=== PATIENT | female | born 1965 | race Caucasian/White ===

== ENCOUNTER 2018-10-14 14:31 | Outpatient (REF) | payer OTHER, SELFPAY ==
[2018-10-14 20:15] LABS: HCT 38.7 % (36.0-46.0); HGB 12.9 g/dL (12.0-15.5); Mean Corp. HGB Concentration 33.3 g/dL (32.0-36.0); Mean Corpuscular Hemoglobin 28.9 pg (27.0-33.0); Mean Corpuscular Volume 86.8 fL (80-95); Mean Platelet Volume 9.9 fL (8.0-11.0); Platelet Count 298 x1000/uL (130-400); RBC 4.46 m/cumm (4.00-5.20); RBC Distribution Width 13.9 % (11.7-14.6); White Blood Cell Count 9.59 k/cumm (4.4-10.8)
[2018-10-14 20:51] LABS: ALT 27 U/L (12-78); AST 20 U/L (15-37); Albumin 3.6 g/dL (3.4-5.0); Alkaline Phosphatase 107 U/L (46-116); Anion Gap 9.5 mmol/L (3-11); BUN 17 mg/dL (7-18); Bilirubin, Total 0.3 mg/dL (0.2-1.0); CO2 26.5 mmol/L (21.0-32.0); CREATININE 0.95 mg/dL (0.55-1.02); Calcium 9.2 mg/dL (8.5-10.1); Chloride 102 mmol/L (98-107); Cholesterol 222 mg/dL (50-200); Glucose 116 mg/dL (70-100); HDL Cholesterol 63 mg/dL (40-60); LDL CHOLESTEROL 128 mg/dL (<100); Potassium 4.2 mmol/L (3.5-5.1); Sodium 138 mmol/L (136-145); Total Protein 7.4 g/dL (6.4-8.2); Triglyceride 126 mg/dL (30-150)
== END 2018-10-14 14:51 ==
LOC: NCHCN 14:31
PROVIDERS: PCP Family Medicine; Visit Provider Family Medicine
DX: Z00.00 Encounter for general adult medical examination without abnormal findings (principal); E78.5 Hyperlipidemia, unspecified
CPT/HCPCS: 80053; 80061; 83721; 85027

== ENCOUNTER 2019-06-02 16:08 | Outpatient (REF) | payer OTHER, SELFPAY | END 2019-06-02 16:28 | LOC: NCHCN 16:08 | PROVIDERS: PCP Family Medicine; Visit Provider Family Medicine | DX: R39.15 Urgency of urination (principal) | CPT/HCPCS: 87086 ==

== ENCOUNTER 2020-02-29 01:25 | Outpatient (CLI) | payer OTHER, SELFPAY ==
--- NOTE | 2020-02-29 | DI.MAMMO_ITS ---
EXAM: MG MAMMO SCREENING CLINICAL HISTORY: SCREENING, Z12.31 TECHNIQUE: Bilateral full field digital CC and MLO mammographic images were obtained with 3D tomosyn thesis and utilizing computer aided detection (CAD). COMPARISON: Available for comparison. FINDINGS: Masses/Architectural Distortion: None seen. Microcalcifications: No suspicious pleomorphic-type are seen. Scattered stable punctate benign-appear ing calcifications are seen throughout the breasts. Skin Thickening/Nipple Retraction: None. IMPRESSION: 1. No significant interval change with no specific features of malignancy noted. 2. Unless there is more urgent need, screening mammography is recommended, as per [employer] guidelines. BI-RADS Category 2 - Benign Findings Breast Density - Category C - Heterogeneously dense The mammogram demonstrates the patient's breast tissue is dense. Dense breast tissue is very common a nd is not abnormal but dense breast tissue can make it harder to find cancer on a mammogram. Also, de nse breast tissue may increase their breast cancer risk. This information about the result of the [facility] mogram report was provided to the patient to raise their awareness. Use this report when you speak wi th the patient about their risks for breast cancer, which includes their family history. At that time , you may recommend for more screening tests (Ultrasound or MRI) as they might be useful based on the ir risk. A negative radiographic report should not delay biopsy if a dominant or clinically suspicious mass is present. Up to ten percent of cancers are not identified on mammography. A negative report may reinforce clinical impression. Adenosis and dense breasts may obscure an underlying neoplasm. False positive reports average 6 to 10%. Patient will receive a letter notifying them of these results.
--- NOTE | 2020-02-29 16:00 | DI.DEXA_ITS ---
EXAM: XR DEXA BONE DENSITY W/WO TANMAY CLINICAL HISTORY: MENOPAUSE SCREENING, Z78.0 TECHNIQUE: [employer] C densitometer. COMPARISON: No exams were available for comparison FINDINGS: The lateral view of the thoracic and lumbar spine shows no evidence of compression fractures. The b one mineral density measurements of the lumbar spine correspond to a total T-score of 1.5, in the nor mal range. Bone mineral density measurements of the left hip correspond to a total T-score of 1.5 an d a femoral neck T-score of 0.3, in the normal range. Bone mineral density measurements of the left forearm correspond to a T-score of the distal 3rd of 0.2, in the normal range. IMPRESSION: Normal bone mineral density.
== END 2020-02-29 01:45 ==
PROVIDERS: PCP Family Medicine; Visit Provider Family Medicine
DX: Z78.0 Asymptomatic menopausal state (principal); Z12.31 Encounter for screening mammogram for malignant neoplasm of breast; R92.2 Inconclusive mammogram; R92.1 Mammographic calcification found on diagnostic imaging of breast
CPT/HCPCS: 77063; 77067; 77080

== ENCOUNTER 2020-04-26 17:25 | Outpatient (REF) | payer OTHER, SELFPAY ==
[2020-05-01 03:11] LABS: Patient Race White; SARS-CoV-2 RNA Undetected (Undetected); SARS-CoV-2 Specimen Source Nasal
== END 2020-04-26 17:45 ==
LOC: NCHCN 17:25
PROVIDERS: PCP Family Medicine; Visit Provider Nurse Practitioner Family
DX: R05 Cough (principal)
CPT/HCPCS: U0003

== ENCOUNTER 2020-09-30 16:23 | Outpatient (REF) | payer OTHER, SELFPAY ==
--- NOTE | 2020-09-30 14:00 | PAPFT_PTH ---
PATIENT: Nayeli Nguyen LOC: [facility]#:[id number] AGE/SX: 55/F ROOM: RE09/30/[address]: Kim Cooper : 1965 BED: DIS: 09/30/2020 SPEC #: [id number] RECD: 10/01/20 12:56 STATUS: YUDY REKylah #: [id number] BELLE: 09/30/20 14:[address]: Kim Cooper DEPT: [facility] Cytology RECD BY: Debbie Dos Santos Tissues: 1 - CX/ENDOCX FOR PAP SMEARS Procedures: PAP THIN PREP/UVM Screening HPV DNA PROBE Comments: [id number]
== END 2020-09-30 16:24 | disposition home or self-care (01) ==
LOC: NCHCN 16:23
PROVIDERS: PCP Family Medicine; Visit Provider Family Medicine
DX: Z00.00 Encounter for general adult medical examination without abnormal findings (principal); Z12.4 Encounter for screening for malignant neoplasm of cervix; Z01.419 Encounter for gynecological examination (general) (routine) without abnormal findings; Z11.51 Encounter for screening for human papillomavirus (HPV)
CPT/HCPCS: 88142; 87624

== ENCOUNTER 2021-07-17 16:09 | Outpatient (REF) | payer OTHER, SELFPAY ==
[2021-07-17 15:10] LABS: Hemoglobin A1C 7.2 % (<5.7)
[2021-07-17 15:24] LABS: ALT 48 U/L (14-59); AST 35 U/L (15-37); Albumin 3.8 g/dL (3.4-5.0); Alkaline Phosphatase 117 U/L (46-116); Anion Gap 7.3 mmol/L (3-11); BUN 17 mg/dL (7-18); Bilirubin, Total 0.3 mg/dL (0.2-1.0); CO2 29.7 mmol/L (21.0-32.0); Calcium 9.2 mg/dL (8.5-10.1); Calculated LDL 117 mg/dL (<100); Chloride 102 mmol/L (98-107); Cholesterol 225 mg/dL (<200); Estimated GFR 57.15 (mL/min/1.73m2); Glucose 179 mg/dL (74-106); HDL Cholesterol 58 mg/dL (40-60); Potassium 4.1 mmol/L (3.5-5.1); Sodium 139 mmol/L (136-145); Total Protein 7.5 g/dL (6.4-8.2); Triglyceride 252 mg/dL (<150)
[2021-07-17 15:36] LABS: Vitamin D 25 Total 42.7 ng/mL (30-100)
== END 2021-07-17 16:10 | disposition home or self-care (01) ==
LOC: NCHCN 16:09
PROVIDERS: PCP Family Medicine; Visit Provider Family Medicine
DX: E78.5 Hyperlipidemia, unspecified (principal); R73.03 Prediabetes
CPT/HCPCS: 80053; 80061; 82306; 83036

== ENCOUNTER 2021-09-22 01:12 | Outpatient (CLI) | payer OTHER, SELFPAY ==
--- NOTE | 2021-09-22 16:08 | DI.MAMMO_ITS ---
Exam(s) MAMMO SCREENING EXAM: MAMMO SCREENING CLINICAL HISTORY: SCREENING, Z12.31 TECHNIQUE: Mammograms were interpreted according to the usual protocol including computer analysis w [employer] CAD system, tomosynthesis and C-view imaging. COMPARISON: 2015 through 2019 FINDINGS: The breasts are composed of heterogeneously dense fibroglandular densities, Breast Density category C . Left breast: No suspicious masses or suspicious microcalcifications are seen. scattered benign calci fications. No skin thickening or abnormal axillary lymph nodes are seen. There has been no significant change from prior exams. Right breast: Scattered benign calcifications similar to contralateral breast, stable. Question of a n area of increased asymmetric density in the upper outer quadrant of the right breast which may repr esent overlying fibroglandular tissue. Spot compression views and ultrasound are requested for furth er evaluation. IMPRESSION: Left breast: BI-RADS Category 1, Negative mammogram. Yearly screening mammography is recommended. Right breast: BI-RADS Cat 0 - Assessment Incomplete: Need additional imaging evaluation Breast Density Category C, heterogeneously Dense. The mammogram demonstrates the patient's breast tissue is dense. Dense breast tissue is very common a nd is not abnormal but dense breast tissue can make it harder to find cancer on a mammogram. Also, de nse breast tissue may increase breast cancer risk. This information about the result of the mammogram report was provided to the patient to raise their awareness. Use this report when you speak with the patient about their risks for breast cancer, which includes their family history. At that time, you may recommend additional screening tests (Ultrasound or MRI) as they might be useful based on their r isk. A negative radiographic report should not delay biopsy if a dominant or clinically suspicious mass is present. Up to ten percent of cancers are not identified on mammography. A negative report may reinforce clinical impression. Adenosis and dense breasts may obscure an underlying neoplasm. False positive reports average 6 to 10%.
== END 2021-09-22 01:32 ==
PROVIDERS: PCP Family Medicine; Visit Provider Family Medicine
DX: Z12.31 Encounter for screening mammogram for malignant neoplasm of breast (principal); R92.8 Other abnormal and inconclusive findings on diagnostic imaging of breast
CPT/HCPCS: 77063; 77067

== ENCOUNTER → 2021-10-03 00:45 | Outpatient (CLI) | payer OTHER, SELFPAY ==
--- NOTE | 2021-10-03 | DI.US_ITS ---
Exam(s) MG MAMMO SCREEN CALL BACK UNI US BREAST RT COMPLETE EXAM: MG MAMMO SCREEN CALL BACK UNI -RIGHT AND COMPLETE RIGHT BREAST ULTRSOUND CLINICAL HISTORY: F/U ABNL MAMMO, ? INCREASED ASYMMETRIC DENSITY RT BREAST. TECHNIQUE: Unilateral RIGHT BREAST spot mammographic images obtained with 3D tomosynthesisand utiliz ing computer aided detection (CAD). . Complete RIGHT breast Ultrasound was also performed, including all 4 quadrants, the retroareolar deandre on, and the ipsilateral axilla. COMPARISON: Prior mammograms were reviewed. This additional imaging was performed due to findings described on the recent screening mammogram of 09/22/2021. FINDINGS: Diagnostic right breast mammogram: Additional mammographic views performed todayrender this area less concerning. Complete right breast ultrasound: Ultrasound performed today reveals no evidence of solid or significant cystic lesions in all 4 quadra nts.. No findings in immediate retroareolar region. Scanning of the right axilla reveals no significant adenopathy IMPRESSION: 1. No radiographic evidence of malignancy in the right breast. 2. Negative complete right breast ultrasound. Appropriate follow-up is repeat right breast MAMMOGRAM in 6 months.. The patient was informed of these findings and recommendations prior to leaving the department today. BI-RADS Category 3 - 6 month - Probably Benign Finding: Recommend follow-up mammography in 6 months Breast Density - Category C - Heterogeneously dense Breast density Category C or D implies that the patient has dense breast tissue. Dense breast tissue can make it harder to find cancer on a mammogram. Dense breast tissue is also associated with an incr eased risk of breast cancer. This information about the result of the mammogram report was provided to the patient to raise their awareness. Use this report when you speak with the patient about their risks for breast cancer, which includes their family history. At that time, you may recommend additional screening tests (Ultrasoun d or MRI) as these tests may add significant information. A negative radiographic report should not delay biopsy if a dominant or clinically suspicious mass is present. Up to ten percent of cancers are not identified on mammography. A negative report may reinforce clinical impression. Adenosis and dense breasts may obscure an underlying neoplasm. False positive reports average 6 to 10%. Patient will receive a letter notifying them of these results.
== END ==
PROVIDERS: PCP Family Medicine; Visit Provider Family Medicine
DX: Z12.31 Encounter for screening mammogram for malignant neoplasm of breast (principal); R92.8 Other abnormal and inconclusive findings on diagnostic imaging of breast; N64.59 Other signs and symptoms in breast
CPT/HCPCS: 76642; 77063; 77067

== ENCOUNTER 2022-02-20 05:52 | Emergency (ER) | payer OTHER, SELFPAY ==
[2022-02-20 05:57] VITALS: BP 139/77; PULSE 83; RESP 16; TEMP 36.5; O2SAT 97
--- OUTSIDE RECORDS SUMMARY | 2022-02-20 05:59 | XMS_ITS | Clinical Summary ---
:1965 Author Organization [facility] [place] [address] Care Team Providers Name Role Phone Kim Cooper MD Primary Care Provider Allergies No known active allergies Medications No known medications Active Problems Problem Noted Date Nevus 06/02/2017 Lentigo 06/02/2017 Social History Tobacco Use Types Packs/Day Years Used Date Never Smoker Smokeless Tobacco: Never Used Sex Assigned at Date Recorded Not on file Last Filed Vital Signs Vital Sign Reading Time Taken Comments Blood Pressure 108/60 05/27/2012 2:30 PM Sourced from [employer] EST Conversion Pulse - - Temperature - - Respiratory Rate - - Oxygen Saturation - - Inhaled Oxygen - - Concentration Weight 79.8 kg (176 lb) 05/27/2012 2:30 PM Sourced from [employer] EST Conversion Height 162.6 cm (5' 4) 05/27/2012 2:30 PM Sourced from [employer] EST Conversion Body Mass Index 30.21 05/27/2012 2:30 PM EST Plan of Treatment Health Maintenance Due Date Last Done Comments Covid-19 Vaccine (#1) 01/22/1969 HIV screen 01/22/1982 Hepatitis C Screening 01/22/1982 Tdap adult 01/22/1983 Tetanus vaccine 01/22/1983 HPV test 01/22/1994 PAP Smear 01/22/1994 Breast Cancer Share Decision Needed 2004 Colonoscopy 01/22/2009 Breast Cancer screening 01/22/2014 Zoster vaccine (1 of 2) 01/22/2014 Advance Directive 01/22/2019 Influenza (Flu) vaccine (1 of 1 - Influenza standard 02/26/2022 series) Insurance Payer Benefit Plan Subscriber ID Effective Dates Phone Address Type / Group FOR FOR [id number] 2018-Miguel [phone] [address] [employer] [address] [address] Care Teams Fibreglass Laminator Relationship Specialty Start Date End Date Kim Cooper MD PCP - General Family Medicine 06/01/17 [address] [place], [place] [id number]
--- OUTSIDE RECORDS SUMMARY | 2022-02-20 05:59 | XMS_ITS | Encounter Summary ---
:1965 Author Organization [facility] [place] [address] Care Team Providers Name Role Phone Patti Faustin DO Primary Care Provider Encounter Details Date Type Department Care Team Description 02/09/2012 Office Visit Nolan Hancock MD [address] [place] [phone] [place] [address] [phone] (Wo rk) Social History Tobacco Use Types Packs/Day Years Used Date Never Assessed Sex Assigned at Date Recorded Not on file documented as of this encounter Plan of Treatment Not on filedocumented as of this encounter Visit Diagnoses Not on filedocumented in this encounter Care Teams Clerical Support Relationship Specialty Start Date End Date Patti Faustin DO PCP - General 12/24/11 05/31/[address] [place] [id number] documented as of this encounter
--- OUTSIDE RECORDS SUMMARY | 2022-02-20 05:59 | XMS_ITS | Encounter Summary ---
:1965 Author Organization [facility] [place] [address] Care Team Providers Name Role Phone Patti Faustin DO Primary Care Provider Encounter Details Date Type Department Care Team Description 02/09/2012 Abstract [facility] Provider, His Cal akiser MD [facility] Health Information Services [address] [place] [phone] Social History Tobacco Use Types Packs/Day Years Used Date Never Assessed Sex Assigned at Date Recorded Not on file documented as of this encounter Last Filed Vital Signs Vital Sign Reading Time Taken Comments Blood Pressure - - Pulse - - Temperature - - Respiratory Rate - - Oxygen Saturation - - Inhaled Oxygen - - Concentration Weight 78.9 kg (174 lb) 02/09/2012 2:00 PM Sourced from [employer] EDT Conversion Height 160 cm (5' 3) 02/09/2012 2:00 PM Sourced from [employer] EDT Conversion Body Mass Index 30.82 02/09/2012 2:00 PM EDT documented in this encounter Plan of Treatment Not on filedocumented as of this encounter Visit Diagnoses Not on filedocumented in this encounter Care Teams Neuropsychologist Relationship Specialty Start Date End Date Patti Faustin DO PCP - General 12/24/11 05/31/17 [address] [place] [address] documented as of this encounter
--- OUTSIDE RECORDS SUMMARY | 2022-02-20 05:59 | XMS_ITS | Encounter Summary ---
:1965 Author Organization [facility] [place] [address] Care Team Providers Name Role Phone Kim Cooper MD Primary Care Provider Reason for Visit Reason Comments Skin Check Consultation (Routine) - Specialty Diagnoses / Procedures Referred By Contact Refer red To Contact Dermatology Procedures Kim Cooper MD Hammer, Charles J, MD Skin Check [address] [place] [address] [place] [address] Phone: Fax: Referral ID Status Reason Start Date Expiration Date Visits V isits Requested Authorized [id number] Consult, Test 06/01/2017 06/01/2018 6 6 & Treat PCP Updated and/or Approved Encounter Details Date Type Department Care Team Description 06/01/2017 [facility] Al[facility] Gil MD Nevus; [address] [facility] Khari [address] [facility] [place] [address] DERMATOLOGY [phone] [place], [place] [address] (Wo rk) Social History Tobacco Use Types Packs/Day Years Used Date Never Smoker Smokeless Tobacco: Never Used Sex Assigned at Date Recorded Not on file documented as of this encounter Progress Notes Alvaro Gil MD - 06/01/2017 2:00 PM EST PROBLEM: 1. Skin check. 2. Family history of malignant melanoma in sister who currently is battling metastatic disease. Nayeli is a 52-year-old woman who would like to have a general skin checkup. She is concerned, given the family history of melanoma in her sister and skin cancer in her father, both of whom she states were out in the sun more than she was. She grew up in [place]. She tended to avoid the sun and has followed sun avoidance precautions. Physical examination reveals a fair-skinned, blue-eyed woman with fair hair. She has a benign examination of the face, the neck, the chest, the back, hands, arms, and forearms. She does have more marked pigmentation and freckling of the dorsal forearms and hands compared to the ventral aspects of the upper extremities. 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 This is unchanged since her earliest childhood. Otherwise, careful examination today is benign. A/P: Benign skin examination. a. Reinforced following sun avoidance precautions. b. Recommend that the patient consider doing regular skin checkups herself. Described the increased risk of melanoma skin cancer in first degree family members of those affected by melanoma. c. Discussed recognition of melanoma, ABCDs of melanoma. Recommended I see her again p.r.n. for new lesions/concerns. cc: Kim Cooper MD documented in this encounter Plan of Treatment Not on filedocumented as of this encounter Visit Diagnoses Diagnosis Nevus Benign neoplasm of skin, site unspecifie d Lentigo Other dyschromia documented in this encounter Care Teams Geriatric Social Work Professor Relationship Specialty Start Date End Date Kim Cooper MD PCP - General Family Medicine 06/01/17 [address] [place] [address] documented as of this encounter
--- OUTSIDE RECORDS SUMMARY | 2022-02-20 05:59 | XMS_ITS | Encounter Summary ---
:1965 Author Organization [place] [place] [address] Care Team Providers Name Role Phone Patti Faustin DO Primary Care Provider Encounter Details Date Type Department Care Team Description 12/24/2011 Office Visit Duke Lawton MD [address] [place] [address] [place] [phone] [place] [address] [phone] (Wo rk) Social History Tobacco Use Types Packs/Day Years Used Date Never Assessed Sex Assigned at Date Recorded Not on file documented as of this encounter Plan of Treatment Not on filedocumented as of this encounter Visit Diagnoses Not on filedocumented in this encounter Care Teams Sampler Ovens Relationship Specialty Start Date End Date Patti Faustin DO PCP - General 12/24/11 05/31/[address] [place] [id number] documented as of this encounter
--- OUTSIDE RECORDS SUMMARY | 2022-02-20 05:59 | XMS_ITS | Encounter Summary ---
:1965 Author Organization [facility] [place] [address] Care Team Providers Name Role Phone Patti Faustin DO Primary Care Provider Encounter Details Date Type Department Care Team Description 05/27/2012 Office Visit Duke Lawton MD [address] [place] [address] [place] [phone] [place] [address] [phone] (Wo rk) Social History Tobacco Use Types Packs/Day Years Used Date Never Assessed Sex Assigned at Date Recorded Not on file documented as of this encounter Plan of Treatment Not on filedocumented as of this encounter Visit Diagnoses Not on filedocumented in this encounter Care Teams Solar System Installer Relationship Specialty Start Date End Date Patti Faustin DO PCP - General 12/24/11 05/31/[address] [place] [id number] documented as of this encounter
--- OUTSIDE RECORDS SUMMARY | 2022-02-20 05:59 | XMS_ITS | Encounter Summary ---
:1965 Author Organization [facility] [place] [address] Care Team Providers Name Role Phone Patti Faustin DO Primary Care Provider Encounter Details Date Type Department Care Team Description 02/26/2012 Office Visit Duke Lawton MD [address] [place] [address] [place] [phone] [place] [address] [phone] (Wo rk) Social History Tobacco Use Types Packs/Day Years Used Date Never Assessed Sex Assigned at Date Recorded Not on file documented as of this encounter Plan of Treatment Not on filedocumented as of this encounter Visit Diagnoses Not on filedocumented in this encounter Care Teams Director Retirement Relationship Specialty Start Date End Date Patti Faustin DO PCP - General 12/24/11 05/31/[address] [place] [address] documented as of this encounter
--- OUTSIDE RECORDS SUMMARY | 2022-02-20 05:59 | XMS_ITS | Encounter Summary ---
:1965 Author Organization [facility] [place] [address] Care Team Providers Name Role Phone Patti Faustin DO Primary Care Provider Encounter Details Date Type Department Care Team Description 01/04/2012 Office Visit Duke Lawton MD [address] [place] [address] [place] [phone] [place] [address] [phone] (Wo rk) Social History Tobacco Use Types Packs/Day Years Used Date Never Assessed Sex Assigned at Date Recorded Not on file documented as of this encounter Plan of Treatment Not on filedocumented as of this encounter Visit Diagnoses Not on filedocumented in this encounter Care Teams Floor Worker Relationship Specialty Start Date End Date Patti Faustin DO PCP - General 12/24/11 05/31/[address] [place] [address] documented as of this encounter
--- NOTE | 2022-02-20 06:03 | ED.GENADUL_ITS ---
Discharge Plan Disposition Patient Disposition: STILL A PATIENT Condition: Stable Discharge Details Clinical Impression: Abdominal pain Primary Care Provider: Kim Cooper ED Provider: Samir Lutz Home Meds and New Rx's Prescriptions: No Action sertraline 100 mg tablet 150 mg PO DAILY Label Comments: TAKE ONE AND ONE-HALF TABLETS DAILY omeprazole 20 mg capsule,delayed release(DR/EC) 20 mg PO DAILY Label Comments: TAKE 1 CAPSULE IN THE MORNING Medical Decision Making 57 yo female with hx of gerd and states had diverticulitis 15 years ago or so comes in with llq abdominal pain for a few days but worsened over the last 24 hours. She states it is only in the llq and is sharp. Denies fevers, vomit, though has had nausea, no chest pain. She has no upper abdominal pain. She has no tenderness on exam other than in the llq and appears in pain. She has no rebound or guarding. Suspect diverticulitis based on location of her pain, will obtain cbc, cmp, lipase and ct abdomen pelvis to further evaluate. pt signed out to oncoming provider pending ct results and dispo Differential Diagnosis Differential Diagnosis: diverticulitis, ovarian cyst HPI General Mode of arrival: ambulatory . Date/Time Provider Initiated Documentation: 02/20/22 05:52 . Limitations to Documentation: no limitations . Information obtained by: patient . History of Present Illness 57 year old F presents to the emergency department with the chief complaint of abdominal pain, described as moderate, Quality is described as stabbing, and is localized to the abdomen. Patient reports no radiation. Patient started experiencing this day(s) (1) and it has been constant. No relieving factors improve symptom(s), No exacerbating factors reported . Patient notes no other symptoms.. Patient did receive the following treatments prior to arrival, none Related Data Home Medications Medication Instructions Recorded Confirmed omeprazole 20 mg capsule,delayed 20 mg PO DAILY 02/20/22 02/20/22 release sertraline 100 mg tablet 150 mg PO DAILY 02/20/22 02/20/22 Allergies Allergy/AdvReac Type Severity Reaction Status Date / Time No Known Allergies Allergy Verified 02/20/22 06:00 General Stated Complaint: Abd Prob FRANKY: 3 Review of Systems All systems reviewed & are unremarkable except as noted in HPI and below Constitutional Constitutional: Denies chills, Denies fever(s) and Denies weakness Cardiovascular Cardiovascular: Denies chest pain and Denies dyspnea Respiratory Respiratory: Denies cough and Denies dyspnea Gastrointestinal Gastrointestinal: Denies vomiting Musculoskeletal Musculoskeletal: Denies joint swelling Neurologic Neurologic: Denies weakness PFSH All Active Problems (Updated 02/20/22 @ 06:13 by Samir Lutz MD) Abdominal pain (Acute) Social History Smoking/Tobacco Use Status: Former Tobacco Use Smoking risk assessment performed?: Yes Substance use type: does not use Exam Const General: no acute distress Orientation: alert HENMT Head: normal to inspection Ears: external ears normal General nose exam: external nose normal Mouth: moist mucous membranes Eyes General: appearance normal, both eyes and all related structures Neck Neck: normal visual inspection Resp Effort & Inspection: normal respiratory effort and able to speak in complete sentences Cardio Rate: regular rate GI Palpation: soft and tender Skin General skin exam: no rashes or lesions noted Neuro General: patient alert and patient oriented x3 Extrem General: normal to inspection Psych Mental Status: mental status grossly normal Course Vital Signs Vital signs: Vital Signs Temperature 36.5 C 02/20/22 05:57 Pulse 83 02/20/22 05:57 Respiratory Rate 16 02/20/22 05:57 Blood Pressure 139/77 02/20/22 05:57 Pulse Oximetry 97 02/20/22 05:57 Temperature 36.5 C 02/20/22 05:57 Temperature Source Temporal Artery Scan 02/20/22 05:57 Pulse 83 02/20/22 05:57 Respiratory Rate 16 02/20/22 05:57 Respiratory Effort 02/20/22 05:57 Blood Pressure 139/77 02/20/22 05:57 Blood Pressure Position Sitting 02/20/22 05:57 Pulse Oximetry 97 02/20/22 05:57 Oxygen Delivery Method Room Air 02/20/22 05:57 Oxygen Flow Rate 0 02/20/22 05:57 Pain Level 7 02/20/22 05:57 Sign Out Sign Out Data: Sign Out Comment: llq abdominal pain for a few days but worsened over past 24 hours, pending ct and labs, does have remote hx of diverticulitis Last updated by Samir Lutz MD at 02/20/22 06:26
[2022-02-20] MEDS: Normal Saline 1,000 ML 1000 ML IV (06:30)
[2022-02-20 06:35] LABS: Source Nasal/Nares
[2022-02-20 06:36] LABS: Abs Immature Grans 0.04 10^3/uL (0.0-0.06); Absolute Eosinophil Count 0.16 10^3/uL (0.0-0.7); Absolute Lymphocyte Count 1.87 10^3/uL (1.2-3.4); Absolute Monocyte Count 1.04 10^3/uL (0.1-0.8); Basophils % 0.3; Eosinophils % 1.4; HCT 36.3 % (36.0-46.0); HGB 11.8 g/dL (11.2-15.7); Immature Grans % 0.3; Lymphocytes % 16.3; MCH 27.6 pg (27.0-33.0); MCHC 32.5 % (32.0-36.0); MCV 85 fL (80-95); MPV 9.6 fL (8.0-11.0); Neutrophils % 72.7; Platelet Count 247 10^3/uL (130-400); RBC 4.28 10^6/uL (3.93-5.22); RDW 13.4 % (11.7-14.6); RDW-SD 41.5 fL
[2022-02-20] MEDS: Ketorolac 15 MG/ML VIAL IVP (06:38)
[2022-02-20] MEDS: Normal Saline Flush 10 ML SYR IVP (06:39)
[2022-02-20 06:46] LABS: Absolute Basophil Count 0.03 10^3/uL (0.0-0.2); Absolute Neutrophil Count 8.36 10^3/uL (1.2-6.7)
[2022-02-20 07:04] LABS: ALT 30 U/L (14-59); AST 29 U/L (15-37); Albumin 3.5 g/dL (3.4-5.0); Alkaline Phosphatase 95 U/L (46-116); Anion Gap 4.7 mmol/L (3-11); BUN 17 mg/dL (7-18); Bilirubin, Total 0.3 mg/dL (0.2-1.0); CO2 30.3 mmol/L (21.0-32.0); CREATININE 0.9 mg/dL (0.55-1.02); Calcium 8.8 mg/dL (8.5-10.1); Chloride 103 mmol/L (98-107); Glucose 145 mg/dL (74-106); Lipase 113 U/L (73-393); Potassium 4.3 mmol/L (3.5-5.1); Sodium 138 mmol/L (136-145); Total Protein 7.6 g/dL (6.4-8.2)
[2022-02-20 07:04] LABS: Bilirubin Negative (Negative); Blood Negative (Negative); Clarity Clear (Clear); Glucose Negative (Negative); Ketones Negative (Negative); Leukocyte Esterase Negative (Negative); Nitrite Negative (Negative); Specific Gravity 1.025 (1.005-1.025); Urobilinogen 0.2 EU/dL (Up TO 0.2)
[2022-02-20 07:08] LABS: COVID-19 PCR Negative (Negative)
--- NOTE | 2022-02-20 07:14 | DI.CT_ITS ---
Exam(s) CT ABDOMEN PELVIS W EXAM: CT ABDOMEN PELVIS W CLINICAL HISTORY: llq abdominal pain. TECHNIQUE: Imaging Protocol: Axial computed tomography images with coronal and sagittal reformatted images were created and reviewed CONTRAST MATERIAL: Intravenous: Omnipaque 100cc Oral: None COMPARISON: No exams were available for comparison FINDINGS: VISUALIZED LUNG BASES: No nodules nor pleural effusions evident. ABDOMEN: There is no ascites. LIVER: There are few small benign-appearing hypodensities in the liver, either cysts or small hemangi omas. GALLBLADDER/BILIARY: There is a small gallstone noted in the gallbladder lumen. No evidence of gallb ladder wall edema nor pericholecystic fluid. CBD is not dilated. PANCREAS: No evidence of pancreatic mass nor dilatation of the pancreatic duct. SPLEEN: Spleen size upper normal. Central hypodensity in the spleen is probably an hemangioma. Sple isauro and portal veins are patent. ADRENALS: There are no significant adrenal masses. KIDNEYS:No cysts evident. No solid renal masses. No calculi nor hydronephrosis.. ABDOMINAL AORTA: Abdominal aorta is not enlarged. LYMPH NODES:There is no retroperitoneal nor paraaortic adenopathy. ABDOMINAL WALL: There is an anterior abdominal wall umbilical fat containing hernia. This does not c ontain bowel loops. GI: No evidence of bowel obstruction. There diverticuli in the descending-left colon and there is evidence of acute diverticulitis at the j unction of the descending colon and upper sigmoid. The culprit diverticulum is on the posterior wall of the colon at this level. Phlegmonous changes but no distinct abscess at this time and no free fl uid. No free air at this time. PELVIS: GI: No evidence of appendicitis.Diverticulitis as described above. LYMPH NODES: There is no intrapelvic nor inguinal adenopathy. REPRODUCTIVE: Nabothian cyst measuring 9 millimeter in the cervix noted. Uterus anteverted. No abnormal adnexal masses. URINARY BLADDER: No calculi nor obvious masses evident OSSEOUS: No significant osseous lesions. Disc space narrowing chronic type at L2-3 level. Other disc spaces exhibit normal height. No fractu res. No listhesis IMPRESSION: 1. Main finding here is acute diverticulitis at the junction of the descending-left colon and upper s igmoid. No drainable abscess at this time nor evidence of free air. 2. Cholelithiasis. No evidence of acute cholecystitis nor dilatation biliary tree. 3. Benign-appearing findings in the liver and spleen as described above. No evidence of hepatic absc ess in this patient with acute diverticulitis. RADIATION DOSE DELIVERED: 988.41mGy.cm Total DLP DATA REPOSITORY: All CT scans at this facility are submitted to the National Radiology Data Registry (NRDR) Dose Index Registry (DIR) with the [employer] (ACR). RADIATION OPTIMIZATION: All CT scans at this facility use at least one of these dose optimization te chniques: automated exposure control; mA and/or kV adjustment per patient size (includes targeted exa ms where dose is matched to clinical indication); or iterative reconstruction.
[2022-02-20] MEDS: Omnipaque 350 MG/ML 100 ML BTL IJ (07:19)
--- NOTE | 2022-02-20 08:13 | DI.VRAD_ITS ---
PROCEDURE INFORMATION: Exam: CT Abdomen And Pelvis With Contrast Exam date and time: 02/20/2022 7:13 AM Age: 57 years old Clinical indication: Abdominal pain; Flank; Left lower quadrant (llq); Patient HX: Llq pain TECHNIQUE: Imaging protocol: Computed tomography of the abdomen and pelvis with contrast. Radiation optimization: All CT scans at this facility use at least one of these dose optimization techniques: automated exposure control; mA and/or kV adjustment per patient size (includes targeted exams where dose is matched to clinical indication); or iterative reconstruction. Contrast material: OMNI-PAQUE 350; Contrast volume: 100 ml; Contrast route: INTRAVENOUS (IV); COMPARISON: No relevant prior studies available. FINDINGS: Liver: There are multiple subcentimeter hepatic hypodensities, too small to accurately characterize statistically favored to represent cysts or hemangiomas. Gallbladder and bile ducts: There are gallstones in the gallbladder. Pancreas: Normal. No ductal dilation. Spleen: There is a subcentimeter low-density lesion in the spleen, likely a cyst or hemangioma. Adrenal glands: Normal. No mass. Kidneys and ureters: Normal. No hydronephrosis. Stomach and bowel: There are diverticuli in the descending colon. There is short segment wall thickening of the the descending colon with pericolonic inflammatory fat stranding. Appendix: No evidence of appendicitis. Intraperitoneal space: No free air. No significant fluid collection. Vasculature: No abdominal aortic aneurysm. Lymph nodes: Unremarkable. No enlarged lymph nodes. Urinary bladder: Unremarkable as visualized. Reproductive: Unremarkable as visualized. Bones/joints: Degenerative changes in the lumbar spine. No acute fracture. Soft tissues: Unremarkable. IMPRESSION: 1. Descending colonic diverticulitis. No discrete/drainable fluid collection or free air. Nonemergent GI consultation is recommended on resolution of acute illness, for consideration of colonoscopy. 2. Gallstones in the gallbladder. Dictated and Authenticated by: Boby Celis MD. Ordering:ADRIANA Dawson MD
--- NOTE | 2022-02-20 08:38 | W.EDPROG ---
Date of service: 02/20/22 Time of Service: 08:38 Medical Decision Making Evidence of diverticulitis without peritonitis, or systemic signs of illness. Tolerating p.o. Will start on Augmentin. Given home care instructions and return precautions. Sign Out Sign Out Data: Sign Out Comment: llq abdominal pain for a few days but worsened over past 24 hours, pending ct and labs, does have remote hx of diverticulitis Last updated by Samir Lutz MD at 02/20/22 06:26 Discharge Plan Disposition Patient Disposition: HOME Condition: Stable Discharge Details Clinical Impression: Abdominal pain, Diverticulitis Primary Care Provider: Kim Cooper ED Provider: Alfredo Ojeda Home Meds and New Rx's Prescriptions: New amoxicillin-pot clavulanate 875-125 mg tablet 1 tab PO BID 10 Days Qty: 20 0RF No Action sertraline 100 mg tablet 150 mg PO DAILY Label Comments: TAKE ONE AND ONE-HALF TABLETS DAILY omeprazole 20 mg capsule,delayed release(DR/EC) 20 mg PO DAILY Label Comments: TAKE 1 CAPSULE IN THE MORNING Discharge Instructions Instructions: Diverticulitis (ED) Additional Instructions: Please follow-up with your primary care physician. Please return to emergency department for any worsening symptoms such as severe abdominal pain fevers chills nausea vomiting or other abnormal symptoms.
[2022-02-20] MEDS: Amoxicillin 875/Clav. 125 TAB PO (08:46)
[2022-02-20 08:48] VITALS: BP 132/80; PULSE 68; RESP 17; TEMP 37; O2SAT 98
== END 2022-02-20 13:40 | disposition home or self-care (01) ==
PROVIDERS: Emergency Medicine; Emergency Provider Emergency Medicine; PCP Family Medicine
DX: K57.92 Diverticulitis of intestine, part unspecified, without perforation or abscess without bleeding (principal); Z20.822 Contact with and (suspected) exposure to COVID-19; Z87.891 Personal history of nicotine dependence
CPT/HCPCS: 36415; 80053; 83690; 87635; 96361; 96374; 99285; 74177; 81003; 85025; 99284; J1885; J3490

== ENCOUNTER → 2022-06-23 08:53 | Outpatient (BNVA) | payer OTHER, SELFPAY | PROVIDERS: PCP Family Medicine; Referring Provider Family Medicine; Visit Provider Surgery | DX: K57.92 Diverticulitis of intestine, part unspecified, without perforation or abscess without bleeding (principal); K21.9 Gastro-esophageal reflux disease without esophagitis; K51.90 Ulcerative colitis, unspecified, without complications; K44.9 Diaphragmatic hernia without obstruction or gangrene; R73.03 Prediabetes | CPT/HCPCS: 99214; 99242 ==

== ENCOUNTER 2022-07-21 09:00 | Day surgery (SDC) | payer OTHER, SELFPAY ==
--- NOTE | 2022-07-20 20:25 | W.PM.DSUDISC ---
Date of service: 07/21/22 Time of Service: 10:49 Discharge Plan Disposition Patient Disposition: Home Condition: Good Discharge Details Reason For Visit: Colonoscopy Attending Provider: Stevie Sanchez Primary Care Provider: Kim Cooper Home Meds and New Rx's Prescriptions: Continued sumatriptan succinate [Imitrex] 100 mg tablet See Rx Instructions PO .COMPLEX Rx Instructions: take 1 tab at onset of headache; if no relief, may repeat 1 tab after at least 2 hrs; max = 2 tabs/24 hrs PO Calcium 600 + D(3) 600 mg-5 mcg (200 unit) capsule PO Centrum Silver Women 8 mg iron-400 mcg-300 mcg tablet 1 tab PO DAILY Excedrin Extra Strength 250-250-65 mg tablet 1 tab PO DAILY sertraline 100 mg tablet 150 mg PO DAILY Label Comments: TAKE ONE AND ONE-HALF TABLETS DAILY omeprazole 20 mg capsule,delayed release(DR/EC) 20 mg PO DAILY Label Comments: TAKE 1 CAPSULE IN THE MORNING Discontinued bisacodyl [Dulcolax (bisacodyl)] 5 mg tablet,delayed release (DR/EC) 5 mg PO ONCE Qty: 4 0RF Rx Instructions: Take according to provider's instructions for colonoscopy prep. polyethylene glycol 3350 17 gram/dose powder 17 g PO ONCE Qty: 238 0RF Rx Instructions: To be taken as directed by prescriber's office for colonoscopy prep. Discharge Instructions Instructions: Diverticulosis (GEN), Diverticulosis Diet (GEN) Additional Instructions: 1. If tolerated, consume a soft, low fiber diet for 1-2 days. 2[address] Do not drive, drink alcohol, operate machinery, make critical decisions, or do activities that require coordination or balance for 24 hours. 3. Because air was put into your colon during the procedure, expelling air from your rectum (passing gas or farting) is normal. 4. You may not have a bowel movement for 1-3 days because of the colonoscopy prep. This is normal. 5. Go directly to the emergency room if you notice any of the following: Develop chills (warm to touch), or if you have a thermometer and your temperature is above 101 Difficulty breathing or difficultly swallowing Persistent vomiting Severe abdominal pain, other than gas cramps Severe chest pain Black, tarry stools Any bleeding ? exceeding one tablespoon 6. Call your physician if the site where your intravenous was started becomes red, swollen, painful, and warm to touch. 7. Your physician has reviewed your pre-procedure medications. Please continue to take those medications as previously ordered. You will be given specific information/education regarding any changes to your medications before leaving. Referrals: Rin Abraham DO [OSTEOPATHIC DOCTOR] - (July 27 at 11:30 AM) Activity:: Activity as Tolerated Diet:: As Tolerated Discharge Orders Discharge Orders: Discharge Order (Routine); Ordered 07/20/22 Ordered By: Stevie Sanchez DS: Diagnosis Discharge Diagnosis (1) Diverticulitis: Status: Chronic Asessment and Plan: Nayeli, we were able to complete your colonoscopy, all the way over to your appendix today. I was able to identify diverticulosis. I did not see any other abnormalities of your large intestine.
--- NOTE | 2022-07-20 20:28 | W.COLOREPORT ---
Date of service: 07/21/22 Time of Service: 11:01 Colonoscopy Report Date of procedure: 07/21/22 Pre-op diagnosis general: Diverticulosis Post-op diagnosis procedure note: same Procedure: Colonoscopy Surgeon: Stevie Sanchez Anesthesia Type: General:No Airway Estimated blood loss (mL): 0 Pathology: none sent Complications: None Disposition: same day Indications: Nayeli is a 57-year-old woman with multiple episodes of abdominal pain consistent with diverticulitis. She is here for colonoscopy to confirm that diagnosis Prep: Miralax/Dulcolax Procedure Start Time: 10:07 Procedure End Time: :34 Retraction Time: 29 Findings: Diverticulosis Procedure Description: After the induction of monitored anesthetic care, and with the patient in left lateral decubitus position, I began by performing an external anorectal exam.? Perineum and skin were normal, as was the anal verge.? There was no evidence of external hemorrhoids.? Next, I performed a digital rectal exam.? I did not appreciate any abnormal findings.? Next, I advanced a colonoscope into the rectal vault.? I performed retroflexion.? This appeared normal.? Using insufflation, I then advanced the colonoscope beyond the rectal folds and into the sigmoid colon before advancing towards the cecum.? The quality of the prep was excellent.? There appeared to be some rare sigmoid diverticulosis, but the lumen was easy to maintain. I also noticed a single diverticula within the ascending colon. The scope was noted to be in the cecum by identification of the ileocecal valve and appendiceal orifice.? I then began withdrawing the colonoscope using repeated irrigation as necessary for full evaluation of the colonic mucosa. Again, there was evidence of sigmoid diverticulosis, mostly between 40 cm and 20 cm from the anal verge. Majority of the diverticula were [place], but there were a few with retained fecal matter. Once the scope was withdrawn to the level of the rectum, great care was taken to examine portions of the rectal folds.? Finally, the scope was withdrawn and the patient was brought to the same-day surgery recovery unit as the anesthetic wore off. ?The findings and instructions were shared with the patient prior to discharge.
[2022-07-21 09:15] VITALS: BP 129/84; PULSE 90; RESP 18; TEMP 36.7; O2SAT 100
--- NOTE | 2022-07-21 09:39 | ANES.PREOP_ITS ---
General Info Date of Service Date Performed: 07/21/22 Height: 5 ft 4 in Weight: 85.3 kg Body Mass Index (BMI): 32.3 Surgical Procedure: Operation Date: 07/21/22 09:35 Proposed Procedure Side Surgeon jacques Sanchez MD Meds Allergies and Home Medications Allergies Allergy/AdvReac Type Severity Reaction Status Date / Time No Known Allergies Allergy Verified 07/21/22 09:32 Home Medication Medication Instructions Recorded omeprazole 20 mg capsule,delayed 20 mg PO DAILY 02/20/22 release sertraline 100 mg tablet 150 mg PO DAILY 02/20/22 calcium carbonate 600 mg-vitamin cap PO 06/15/22 D3 5 mcg (200 unit) capsule (Calcium 600 + D(3)) multivit with 1 tab PO DAILY 06/15/22 uimwyddz-zinc-WR-lutein 8 mg iron-400 mcg-300 mcg tablet (Centrum Silver Women) sumatriptan succinate 100 mg See Rx Instructions PO .COMPLEX 06/15/22 tablet (Imitrex) ofyehnh-nvjueomudebwd-dfpuudiy 250 1 tab PO DAILY 06/23/22 mg-250 mg-65 mg tablet (Excedrin Extra Strength) Current Visit Medications: Current Medications Generic Name Dose Route Start Last Admin Trade Name Freq PRN Reason Stop Dose Admin Hyoscyamine Sulfate 0.125 mg 07/20/22 20:29 Hyoscyamine 0.125 Mg Sl/Oral/Chew SL DIRECTED PRN Ringer's Solution 1,000 mls @ 80 mls/hr 07/21/22 06:00 IV 08/19/22 23:59 INFUSION [facility] IV Miscellaneous Supplies 1 each 07/21/22 06:00 Iv Access IV 08/19/22 23:59 DIRECTED [facility] Ondansetron HCl 4 mg 07/20/22 20:29 Ondansetron 4 Mg/2 Ml Vial IVP Q4H PRN PRN Nausea / Vomiting Sodium Chloride 0 ml 07/21/22 06:00 Normal Saline Flush 10 Ml Syr IV 08/19/22 23:59 PRN PRN Sodium Chloride 0 ml 07/21/22 06:00 Normal Saline 10 Ml Vial IJ 08/19/22 23:59 DIRECTED PRN Sterile Water 0 ml 07/21/22 06:00 Water,Injection,Sterile 10 Ml Vial IJ 08/19/22 23:59 DIRECTED PRN PFSH Active Problems Active Problems: Problem Status Onset Code Diverticulitis K57.92 Prediabetes R73.03 Hiatal hernia K44.9 Headache R51.9 GERD (gastroesophageal reflux disease) K21.9 Depression F32.A Medical History Medical History Abnormal mammogram of right breast Family history of stress History of tachycardia Hyperlipidemia Intracranial hemangioma Menopause Vaginal dryness Surgical History Surgical History H/O cardiac radiofrequency ablation History of colonoscopy Tobacco Smoking/Tobacco Use Status: Former Tobacco Use Substance Use Substance use type: does not use Vital Signs and Lab Results Vital Signs Most Recent Vital Signs in EMR: Most Recent Vital Signs Temp Pulse Resp BP Pulse Ox 36.7 C 90 18 129/84 100 07/21/22 09:15 07/21/22 09:15 07/21/22 09:15 07/21/22 09:15 07/21/22 09:15 Lab Results Blood Type / Crossmatch: No Data to Display Complete Blood Count: No Data to Display Complete Metabolic Panel: No Data to Display Liver Function Panel: No Data to Display Coagulation Panel: No Data to Display Cardiac Panel: No Data to Display Arterial Blood Gas: No Data to Display Venous Blood Gas: No Data to Display Pancreas Panel: No Data to Display Thyroid Panel: No Data to Display Infectious Disease: No Data to Display Blood Cultures: No Data to Display Toxicology Panel: No Data to Display Anesthesia Assessment and Plan Anesthesia History Personal History: No History of Anesthesia Complications Family History: No Family History of Anesthesia Complications Exercise Tolerance Exercise Tolerance: Metabolic Equivalents>4 Pertinent Negatives Pertinent Negatives: No Symptoms of GERD and No Major Pulmonary Symptoms or Complaints Cardiac & Pulmonary Exam Cardiac Exam: Normal S1/S2 Heart Sounds Pulmonary Exam: Clear Bilateral Breath Sounds Implantable Cardiac Device Does patient have a Pacemaker or an ICD?: No Airway Exam Known Difficult Airway: No Mallampati Class: 2 Mouth Opening: Normal (> 3cm) Thyromental Distance: Greater than 3 cm Neck Range of Motion: Full ROM Neck Circumference: Normal Teeth Condition: Normal Dentition ASA Classification ASA Score: ASA 2 Emergency Case?: No NPO Status NPO Status: NPO Clears >2 hours, Solids >8 hours Anesthesia Plan Resuscitation Status: Full Code Anesthesia Technique: General Anesthesia Airway Planned: Natural Airway Monitors Used: Standard Monitors
[2022-07-21 09:40] VITALS: BMI 32.3
[2022-07-21] MEDS: Lactated Ringers 1,000 ML 80 ML IV (09:40)
[2022-07-21 10:40] VITALS: BP 108/66; PULSE 70; RESP 16; TEMP 36.3; O2SAT 98
[2022-07-21 11:20] VITALS: BP 117/79; PULSE 80; RESP 18; TEMP 36.2; O2SAT 95
--- NOTE | 2022-07-21 11:32 | W.ANESPOSTOP ---
Postoperative Evaluation Date, Time and Location Date Performed: 07/21/22 Time Performed: 11:32 Patient Location: Day Surgery Unit Vital Signs Most Recent Imported Vital Signs: Most Recent Vital Signs Temp Pulse Resp BP Pulse Ox 36.3 C L 70 16 108/66 98 07/21/22 10:40 07/21/22 10:40 07/21/22 10:40 07/21/22 10:40 07/21/22 10:40 Assessment Mental Status: Awake (Alert & Oriented to Patient Baseline) Airway and Respiratory Function: Patent airway with normal (patient baseline) respiratory exam Cardiovascular Function: Hemodynamically Stable Hydration Status: Adequately Hydrated Nausea & Vomiting: No Nausea or Vomiting Pain: Pt. Denies Any Pain Peripheral Nerve Block: Patient did not receive a nerve block
== END 2022-07-21 11:41 | disposition home or self-care (01) ==
PROVIDERS: PCP Family Medicine; Visit Provider Surgery
PROC: 0DJD8ZZ Inspection of Lower Intestinal Tract, Via Natural or Artificial Opening Endoscopic (ICD-10-PCS; CPT 45378; principal; 2022-07-21 09:30)
DX: K57.30 Diverticulosis of large intestine without perforation or abscess without bleeding (principal)
CPT/HCPCS: 45378; J2704

== ENCOUNTER → 2022-07-27 11:27 | Outpatient (BNVA) | payer OTHER, SELFPAY | PROVIDERS: PCP Family Medicine; Referring Provider Family Medicine; Visit Provider Surgery | DX: K57.30 Diverticulosis of large intestine without perforation or abscess without bleeding (principal) | CPT/HCPCS: 99213 ==

== ENCOUNTER 2022-09-24 01:17 | Outpatient (CLI) | payer OTHER, SELFPAY ==
--- NOTE | 2022-09-24 | DI.MAMMO_ITS ---
Exam(s) MAMMO SCREENING EXAM: MAMMO SCREENING CLINICAL HISTORY: SCREENING MAMMO Z12.31 TECHNIQUE: Mammograms were interpreted according to the usual protocol including computer analysis w [employer] CAD system, tomosynthesis and C-view imaging. COMPARISON: 2015 through 2021 FINDINGS: The breasts are composed of heterogeneously dense fibroglandular densities, Breast Density category C . No suspicious masses or suspicious microcalcifications are seen. Scattered benign calcifications juan aterally. No skin thickening or abnormal axillary lymph nodes are seen. There has been no significant change from prior exams. IMPRESSION: BI-RADS Cat 2 - Benign Findings Yearly screening mammography is recommended. Breast Density Category C, heterogeneously Dense. The mammogram demonstrates the patient's breast tissue is dense. Dense breast tissue is very common a nd is not abnormal but dense breast tissue can make it harder to find cancer on a mammogram. Also, de nse breast tissue may increase breast cancer risk. This information about the result of the mammogram report was provided to the patient to raise their awareness. Use this report when you speak with the patient about their risks for breast cancer, which includes their family history. At that time, you may recommend additional screening tests (Ultrasound or MRI) as they might be useful based on their r isk. A negative radiographic report should not delay biopsy if a dominant or clinically suspicious mass is present. Up to ten percent of cancers are not identified on mammography. A negative report may reinforce clinical impression. Adenosis and dense breasts may obscure an underlying neoplasm. False positive reports average 6 to 10%.
== END 2022-09-24 01:37 ==
LOC: DI 01:17
PROVIDERS: PCP Family Medicine; Visit Provider Family Medicine
DX: Z12.31 Encounter for screening mammogram for malignant neoplasm of breast (principal)
CPT/HCPCS: 77063; 77067

== ENCOUNTER 2023-08-09 17:17 | Outpatient (REF) | payer OTHER, SELFPAY ==
[2023-08-09 21:59] LABS: Hemoglobin A1C 6.7 % (<5.7)
== END 2023-08-09 17:18 | disposition home or self-care (01) ==
LOC: NCHCN 17:17
PROVIDERS: PCP Family Medicine; Visit Provider Family Medicine
DX: E78.5 Hyperlipidemia, unspecified (principal)
CPT/HCPCS: 80061; 83036

== ENCOUNTER 2023-08-24 17:41 | Outpatient (REF) | payer OTHER, SELFPAY ==
[2023-08-24 15:52] LABS: Calculated LDL 241 mg/dL (<100); Cholesterol 348 mg/dL (<200); HDL Cholesterol 56 mg/dL (40-60); Triglyceride 257 mg/dL (<150)
== END 2023-08-24 17:42 | disposition home or self-care (01) ==
LOC: NCHCN 17:41
PROVIDERS: PCP Family Medicine; Visit Provider Family Medicine
DX: E78.5 Hyperlipidemia, unspecified (principal)
CPT/HCPCS: 80061

== ENCOUNTER → 2023-08-25 01:31 | Outpatient (CLI) | payer OTHER, SELFPAY ==
--- NOTE | 2023-08-25 10:04 | DI.RAD_ITS ---
Exam(s) XR HAND RT COMPLETE XR THUMB LT EXAM: XR THUMB LT CLINICAL HISTORY: M79.645 Pain in left finger, Thumb, Over MCP. TECHNIQUE: 2D digital imaging was performed. Three views. COMPARISON: None. FINDINGS: BONES: No acute fracture is present. No bony destructive lesion is seen. The bones are normally mine ralized. JOINTS: No dislocation present. Mild narrowing of the interphalangeal joints of the thumb and finger s. SOFT TISSUE: Normal. IMPRESSION: Mild degenerative changes of the interphalangeal joints. DATA REPOSITORY: RADIATION DOSE DELIVERED:
== END ==
PROVIDERS: PCP Family Medicine; Visit Provider Family Medicine
DX: M19.042 Primary osteoarthritis, left hand (principal)
CPT/HCPCS: 73130; 73140

== ENCOUNTER → 2023-09-27 02:44 | Outpatient (CLI) | payer OTHER, SELFPAY ==
--- NOTE | 2023-09-27 | DI.MAMMO_ITS ---
Exam(s) MAMMO SCREENING EXAM: MAMMO SCREENING CLINICAL HISTORY: SCREENING MAMMO FOR BREAST CANCER Z12.31 TECHNIQUE: Bilateral full field digital CC and MLO mammographic images were obtained with 3D tomosyn thesis and utilizing computer aided detection (CAD). COMPARISON: Available for comparison. FINDINGS: Masses/Architectural Distortion: None seen. Microcalcifications: No suspicious pleomorphic-type are seen. Stable benign type calcifications are s een in both breasts. Skin Thickening/Nipple Retraction: None. IMPRESSION: 1. No significant interval change with no specific features of malignancy noted. 2. Unless there is more urgent need, screening mammography is recommended, as per [place] guidelines. BI-RADS Category 2 - Benign Findings Breast Density - Category C - Heterogeneously dense Breast density category C or D implies that the patient has dense breast tissue. Dense breast tissue is very common and is not abnormal but dense breast tissue can make it harder to find cancer on a ma mmogram. Also, dense breast tissue may increase their breast cancer risk. This information about the result of the mammogram report was provided to the patient to raise their awareness. Use this report when you speak with the patient about their risks for breast cancer, which includes their family hist ory. At that time, you may recommend for more screening tests (Ultrasound or MRI) as they might be us eful based on their risk. A negative radiographic report should not delay biopsy if a dominant or clinically suspicious mass is present. Up to ten percent of cancers are not identified on mammography. A negative report may reinforce clinical impression. Adenosis and dense breasts may obscure an underlying neoplasm. False positive reports average 6 to 10%. Patient will receive a letter notifying them of these results.
== END ==
PROVIDERS: PCP Family Medicine; Visit Provider Family Medicine
DX: Z12.31 Encounter for screening mammogram for malignant neoplasm of breast (principal)
CPT/HCPCS: 77063; 77067

== ENCOUNTER 2024-02-07 23:46 | Outpatient (REF) | payer OTHER, SELFPAY ==
[2024-02-07 17:01] LABS: ALT 33 U/L (14-59); AST 22 U/L (15-37); Albumin 3.8 g/dL (3.4-5.0); Alkaline Phosphatase 94 U/L (46-116); Anion Gap 8.9 mmol/L (3-11); BUN 18 mg/dL (7-18); Bilirubin, Total 0.23 mg/dL (0.2-1.0); CO2 28.1 mmol/L (21.0-32.0); Calcium 9.2 mg/dL (8.5-10.1); Calculated LDL 115 mg/dL (<100); Chloride 103 mmol/L (98-107); Cholesterol 204 mg/dL (<200); Estimated GFR 64.49 (mL/min/1.73m2); Glucose 215 mg/dL (74-106); HDL Cholesterol 58 mg/dL (40-60); Potassium 4.1 mmol/L (3.5-5.1); Sodium 140 mmol/L (136-145); Total Protein 7.3 g/dL (6.4-8.2); Triglyceride 159 mg/dL (<150)
--- OUTSIDE RECORDS SUMMARY | 2024-02-07 23:50 | XMS_ITS | Encounter Summary ---
[place] [address] Care Team Providers Care Insole Rounder Name Role Phone Patti Faustin DO Primary Care Provider [phone] Encounter Details Date Type Department Care Team ([facility] st Contact Info) Description 01/04/2012 1:45 PM EDT Office Visit [facility] [address] [place] [id number] Duke Prescott MD [address] [place], [place] [id number] Social History Tobacco Use Types Packs/Day Years Used Date Smoking Tobacco: Never Assessed Sex and Gender Information Value Date Recorded Sex Assigned at Not on file Gender Identity Not on file Sexual Orientation Not on file documented as of this encounter Plan of Treatment Not on file documented as of this encounter Visit Diagnoses Not on filedocumented in this encounter Care Teams Insole Rounder Relationship Specialty Start Date End Date Patti Faustin DO [address] [place] [address] PCP - General 12/24/11 05/31/17 documented as of this encounter
--- OUTSIDE RECORDS SUMMARY | 2024-02-07 23:50 | XMS_ITS | Encounter Summary ---
[facility] [place] [address] Care Team Providers Care Menhaden Vessel Pilot Name Role Phone Patti Faustin DO Primary Care Provider [phone] Encounter Details Date Type Department Care Team ([facility] st Contact Info) Description 02/26/2012 [facility] Information Services [address] [facility] [place] [phone] Provider, His [place] MD Social History Tobacco Use Types Packs/Day Years [...] - Oxygen Saturation - - Inhaled Oxygen Concentration - - Weight 81.2 kg (179 lb) 02/26/2012 10:4 5 AM EDT Sourced from [place] Conversion Height 160 cm (5' 3) 02/26/2012 10:45 AM EDT Sourced from [place] Conversion Body Mass Index 31.71 02/26/2012 10:45 AM EDT documented in this encounter Plan of Treatment Not on file documented as of this encounter Visit Diagnoses Not on filedocumented in this encounter Care Teams Menhaden Vessel Pilot Relationship Specialty Start Date End Date Patti Faustin DO [address] [place] [address] PCP - General 12/24/11 05/31/17 documented as of this encounter
--- OUTSIDE RECORDS SUMMARY | 2024-02-07 23:50 | XMS_ITS | Encounter Summary ---
Author Organization [facility] [place] [address] Care Team Providers Care Machine Stripper Name Role Phone Patti Faustin DO Primary Care Provider [phone] Encounter Details Date Type Department Care Team (Late st Contact Info) Description 01/07/2012 Orders Only [facility] [place] [phone] Duke Prescott MD [address] [place] [address] Social History Tobacco Use Types Packs/Day Years Used Date Smoking Tobacco: Never Assessed Sex and Gender Information Value Date Recorded Sex Assigned at Not on file Gender Identity Not on file Sexual Orientation Not on file documented as of this encounter Plan of Treatment Not on file documented as of this encounter Procedures Procedure Name Priority Date/Time Associated Diagnosis Comments MRI BRAIN WWO CONTRAST (GENERIC) Routine 01/07/2012 2:36 PM EDT documented in this encounter Results * MRI Brain wwo Contrast (Generic) (01/07/2012 2:36 PM EDT) Anatomical Region Laterality Modality Head Magnetic Resonan ce 01/07/2012 2:36 PM EDT Narrative 01/12/2012 9:35 AM EDT External Results Bennett Niño Final Report EXAMINATION: ??MRI 8020 - MR BRAIN W/O AND W/ CONTR ??[id number] DIAGNOSIS: ?CHRONIC HEADACHES BIFRONTAL REASON: ? CHRONIC HEADACES BIFRONTAL RESULT: ? Clinical Data: ??Chronic headaches, bifrontal. TECHNIQUE: ? Sagittal T1 and FLAIR and ??multisequencing axial images were obtained in addition to diffusion and postgadolinium axial and coronal images. ?? No comparison. FINDINGS: ?There is a popcorn type appearance to a well marginated 2 cm mass within the right frontal region situated along the vidal white matter junction without surrounding low signal which is consistent with a cavernous hemangioma. ??With enhancement, small vessels emanate up to this. There is currently no associated edema or mass effect. ??Carotid and basilar flow voids are present. ??The 7th and 8th nerve complexes appear within normal limits. No significant opacification of visualized paranasal sinuses or mastoid air cell regions. Midline structures are present and well formed. ?? No restricted diffusion. IMPRESSION: ? A 2 cm right frontal cavernous hemangioma. INTERPRETING PHYSICIAN: ??YUMIKO CERNA M.D. ? TRANSCRIBED BY/DATE: ?? ALANIS on Jan 08 2012 ??1:55P ELECTRONICALLY AUTHORIZED BY: ?? YUMIKO CERNA M.D. ? Jan 12 2012 ??9:35A Procedure Note Yumiko Cerna MD - 02/11/2017 External Results Bennett Niño Final Report EXAMINATION: MRI 8020 - MR BRAIN W/O AND W/ CONTR [id number] DIAGNOSIS: CHRONIC HEADACHES BIFRONTAL REASON: CHRONIC HEADACES BIFRONTAL RESULT: Clinical Data: Chronic headaches, bifrontal. TECHNIQUE: Sagittal T1 and FLAIR and multisequencing axial imageswere obtained in addition to diffusion and postgadolinium axial and coronal images. No comparison. FINDINGS: There is a popcorn type appearance to a wellmarginated 2 cm mass within the right frontal region situated along the graywhite matter junction without surrounding low signal which is consistent witha cavernous hemangioma. With enhancement, small vessels emanate up tothis. There is currently no associated edema or mass effect. Carotid andbasilar flow voids are present. The 7th and 8th nerve complexes appear within normal limits. No significant opacification of visualized paranasal sinuses or mastoidair cell regions. Midline structures are present and well formed. No restricteddiffusion. IMPRESSION: A 2 cm right frontal cavernous hemangioma. INTERPRETING PHYSICIAN: YUMIKO CERNA M.D. TRANSCRIBED BY/DATE: ALANIS Jan 08 2012 1:55P ELECTRONICALLY AUTHORIZED BY: YUMIKO CERNA M.D. Jan 12 2012 9:35A Duke Prescott MD IMG MRI ORDERABLES documented in this encounter Visit Diagnoses Not on filedocumented in this encounter Care Teams Machine Stripper Relationship Specialty Start Date End Date Patti Faustin DO [address] [place] [address] PCP - General 12/24/11 05/31/17 documented as of this encounter
--- OUTSIDE RECORDS SUMMARY | 2024-02-07 23:50 | XMS_ITS | Encounter Summary ---
Author Organization [facility] [place] [address] Care Team Providers Care Archeology Faculty Member Name Role Phone Patti Faustin DO Primary Care Provider [phone] Encounter Details Date Type Department Care Team (Late st Contact Info) Description 05/27/2012 Abstract [facility] Information Services [address] [place] [phone] Provider, His [place] MD Social History Tobacco Use Types Packs/Day Years Used Date Smoking Tobacco: Never Assessed Sex and Gender Information Value Date Recorded Sex Assigned at Not on file Gender Identity Not on file Sexual Orientation Not on file documented as of this encounter Last Filed Vital Signs Vital Sign Reading Time Taken Comments Blood Pressure 108/60 05/27/2012 2:30 PM EST Sourced from [place] [facility] Conversion Pulse - - Temperature - - Respiratory Rate - - Oxygen Saturation - - Inhaled Oxygen Concentration - - Weight 79.8 kg (176 lb) 05/27/2012 2:30 PM EST Sourced from [facility] Conversion Height 162.6 cm (5' 4) 05/27/2012 2:30 PM EST Sourced from [place] Conversion Body Mass Index 30.21 05/27/2012 2:30 PM EST documented in this encounter Plan of Treatment Not on file documented as of this encounter Visit Diagnoses Not on filedocumented in this encounter Care Teams Archeology Faculty Member Relationship Specialty Start Date End Date Patti Faustin DO [address] [place] [address] PCP - General 12/24/11 05/31/17 documented as of this encounter
--- OUTSIDE RECORDS SUMMARY | 2024-02-07 23:50 | XMS_ITS | Encounter Summary ---
Author Organization [facility] [place] [address] Care Team Providers Care Manuscripts Archivist Name Role Phone Patti Faustin DO Primary Care Provider [phone] Encounter Details Date Type Department Care Team ([facility] st Contact Info) Description 02/09/2012 [facility] Information Services [address] [facility] [place] [phone] Provider, His [place] MD Social History Tobacco [...] - Inhaled Oxygen Concentration - - Weight 78.9 kg (174 lb) 02/09/2012 2:00 PM EDT Sourced from [place] Conversion Height 160 cm (5' 3) 02/09/2012 2:00 PM EDT Sourced from [place] Conversion Body Mass Index 30.82 02/09/2012 2:00 PM EDT documented in this encounter Plan of Treatment Not on file documented as of this encounter Visit Diagnoses Not on filedocumented in this encounter Care Teams Manuscripts Archivist Relationship Specialty Start Date End Date Patti Faustin DO [address] [place] [address] PCP - General 12/24/11 05/31/17 documented as of this encounter
--- OUTSIDE RECORDS SUMMARY | 2024-02-07 23:50 | XMS_ITS | Encounter Summary ---
Author Organization [facility] [place] [address] Care Team Providers Care Wheel Setter Name Role Phone Kim Cooper MD Primary Care Provider [phone] Reason for Visit * Reason Comments Skin Check * Consultation (Routine) - Specialty Diagnoses / Procedures Referred By Kristel eduardo Referred To Contact Dermatology Procedures Skin Check Kim Cooper MD [address] [place] [address] Alvaro Gil MD [address] [place] [address], [facility] [place] [address] Referral ID Status Reason Start Date Expiration Date V isits Requested Visits Authorized [id number] Consult, Test & Treat PCP Updated and/or Approved 06/01/2017 06/01/2018 6 6 Encounter Details Date Type Department Care Team (Late st Contact Info) Description 06/01/2017 2:00 PM EST Office Visit Dermatology at [address] [phone] Alvaro Gil MD [address] [place] [address], [facility] [place] [address] Nevus; Lentigo Social History Tobacco Use Types Packs/Day Years Used Date Smoking Tobacco: Never Smokeless Tobacco: Never Sex and Gender Information Value Date Recorded Sex Assigned at Not on file Gender Identity Not on file Sexual Orientation Not on file documented as of this encounter Progress Notes * Alvaro Gil MD - 06/01/2017 2:00 PM [...] than she was. She grew up in [place]. She tended to avoid the sun and [...] documented as of this encounter Visit Diagnoses Diagnosis Nevus Benign neoplasm of skin, site unspecified Lentigo Other dyschromia documented in this encounter Care Teams Wheel Setter Relationship Specialty Start Date End Date Kim Cooper MD [address] [place] [address] PCP - General Family Medicine 06/01/17 documented as of this encounter
--- OUTSIDE RECORDS SUMMARY | 2024-02-07 23:50 | XMS_ITS | Encounter Summary ---
[place] [address] Care Team Providers Care Forming Machine Upkeep Mechanic Name Role Phone Patti Faustin DO Primary Care Provider [phone] Encounter Details Date Type Department Care Team ([facility] st Contact Info) Description 12/24/2011 11:45 AM EDT Office Visit [facility] [address] [place] [phone] Duke Prescott MD [address] [place], [place] [phone] Social History Tobacco Use Types Packs/Day Years Used Date Smoking Tobacco: Never Assessed Sex and Gender Information Value Date Recorded Sex Assigned at Not on file Gender Identity Not on file Sexual Orientation Not on file documented as of this encounter Plan of Treatment Not on file documented as of this encounter Visit Diagnoses Not on filedocumented in this encounter Care Teams Forming Machine Upkeep Mechanic Relationship Specialty Start Date End Date Patti Faustin DO [address] [place] [address] PCP - General 12/24/11 05/31/17 documented as of this encounter
--- OUTSIDE RECORDS SUMMARY | 2024-02-07 23:50 | XMS_ITS | Encounter Summary ---
[place] [address] Care Team Providers Care Digital Advertising Analyst Name Role Phone Patti Faustin DO Primary Care Provider [phone] Encounter Details Date Type Department Care Team ([facility] st Contact Info) Description 02/26/2012 10:45 AM EDT Office Visit [facility] [address] [place] [phone] Duke Prescott MD [address] [place], [place] [phone] Social History Tobacco Use Types Packs/Day Years Used Date Smoking Tobacco: Never Assessed Sex and Gender Information Value Date Recorded Sex Assigned at Not on file Gender Identity Not on file Sexual Orientation Not on file documented as of this encounter Plan of Treatment Not on file documented as of this encounter Visit Diagnoses Not on filedocumented in this encounter Care Teams Digital Advertising Analyst Relationship Specialty Start Date End Date Patti Faustin DO [address] [place] [address] PCP - General 12/24/11 05/31/17 documented as of this encounter
--- OUTSIDE RECORDS SUMMARY | 2024-02-07 23:50 | XMS_ITS | Encounter Summary ---
[place] [address] Care Team Providers Care Domestic Cleaner Name Role Phone Patti Faustin DO Primary Care Provider [phone] Encounter Details Date Type Department Care Team ([facility] st Contact Info) Description 05/27/2012 2:30 PM EST Office Visit [facility] [address] [place] [phone] Duke Prescott MD [address] [place], [place] [address] Social History Tobacco Use Types Packs/Day Years Used Date Smoking Tobacco: Never Assessed Sex and Gender Information Value Date Recorded Sex Assigned at Not on file Gender Identity Not on file Sexual Orientation Not on file documented as of this encounter Plan of Treatment Not on file documented as of this encounter Visit Diagnoses Not on filedocumented in this encounter Care Teams Domestic Cleaner Relationship Specialty Start Date End Date Patti Faustin DO [address] [place] [address] PCP - General 12/24/11 05/31/17 documented as of this encounter
--- OUTSIDE RECORDS SUMMARY | 2024-02-07 23:50 | XMS_ITS | Encounter Summary ---
[place] [address] Care Team Providers Care Spooler Name Role Phone Patti Faustin DO Primary Care Provider [phone] Encounter Details Date Type Department Care Team ([facility] st Contact Info) Description 02/09/2012 2:00 PM EDT Office Visit [facility] [address] [place] [phone] Nolan Rodgers MD [address] [place] [address] Social History Tobacco Use Types Packs/Day Years Used Date Smoking Tobacco: Never Assessed Sex and Gender Information Value Date Recorded Sex Assigned at Not on file Gender Identity Not on file Sexual Orientation Not on file documented as of this encounter Plan of Treatment Not on file documented as of this encounter Visit Diagnoses Not on filedocumented in this encounter Care Teams Spooler Relationship Specialty Start Date End Date Patti Faustin DO [address] [place] [address] PCP - General 12/24/11 05/31/17 documented as of this encounter
--- OUTSIDE RECORDS SUMMARY | 2024-02-07 23:50 | XMS_ITS | Clinical Summary ---
[place] [address] Care Team Providers Care Woodyard Operator Name Role Phone Kim Cooper MD Primary Care Provider [phone] Allergies No known active allergies Medications No known medications Active Problems Problem Noted Date Diagnosed Date Nevus 06/02/2017 Lentigo 06/02/2017 Social History Tobacco Use Types Packs/Day Years Used Date Smoking Tobacco: Never Smokeless Tobacco: Never Sex and Gender Information Value Date Recorded Sex Assigned at Not on file Gender Identity Not on file Sexual Orientation Not on file Last Filed Vital Signs Vital Sign Reading Time Taken Comments Blood Pressure 108/60 05/27/2012 2:30 PM EST Sourced from [facility] Conversion Pulse - - Temperature - - Respiratory Rate - - Oxygen Saturation - - Inhaled Oxygen Concentration - - Weight 79.8 kg (176 lb) 05/27/2012 2:30 PM EST Sourced from [facility] Conversion Height 162.6 cm (5' 4) 05/27/2012 2:30 PM EST Sourced from [facility] Body Mass Index 30.21 05/27/2012 2:30 PM EST Plan of Treatment Health Maintenance Due Date Last Done Comments CT Colonography 1964 Colonoscopy 1964 Colorectal Cancer Screening 1964 FIT DNA 1964 FIT 1964 Sigmoidoscopy (10 year) with FIT yearly 1964 Sigmoidoscopy 1965 HIV screen 01/22/1982 Hepatitis C Screening 01/22/1982 Tdap adult 01/22/1983 Tetanus vaccine 01/22/1983 HPV test 01/22/1994 PAP Smear 01/22/1994 Breast Cancer Share Decision Needed 2004 Breast Cancer screening 2004 Zoster vaccine (1 of 2) 01/22/2014 Advance Directive 01/22/2019 Covid-19 Vaccine ( season) 2023 Influenza (Flu) vaccine (1 o f 1 - Influenza standard series) 02/27/2024 Care Teams Woodyard Operator Relationship Specialty Start Date End Date Kim Cooper MD [address] [place], [place] [id number] PCP - General Family Medicine 06/01/17
== END 2024-02-07 23:47 | disposition home or self-care (01) ==
LOC: NCHCN 23:46
PROVIDERS: PCP Family Medicine; Visit Provider Family Medicine
DX: E78.5 Hyperlipidemia, unspecified (principal)
CPT/HCPCS: 80053; 80061

== ENCOUNTER 2024-03-27 15:33 | Outpatient (REF) | payer OTHER, SELFPAY ==
--- NOTE | 2024-03-27 11:45 | SKI_PTH ---
PATIENT: Nayeli Nguyen LOC: [facility] U#:[id number] AGE/SX: 59/F ROOM: RE03/27/[address]: Vince Georges MD : 1965 BED: DIS: 03/27/2024 SPEC #: [id number] RECD: 03/27/24 17:01 STATUS: UYDY MCADAMS #: [id number] BELLE: 03/27/24 11:[address]: Vince Georges DEPT: Surgical Specimen RECD BY: Debbie Dos Santos ENTERED: 03/27/24 17:01 SP TYPE: LASHAWN JORDAN DR: Micaela Jiménez Tissues: 1 - SKIN BIOPSY(SHAVE/PUNCH) Procedures: SKIN LEVEL 4 Comments: [id number]
--- OUTSIDE RECORDS SUMMARY | 2024-03-27 15:37 | XMS_ITS | Encounter Summary ---
Author Organization [facility] [place] [address] Care Team Providers Care Tool Maintenance Worker Name Role Phone Patti Faustin DO Primary Care Provider [phone] Encounter Details Date Type Department Care Team (Late st Contact Info) Description 05/27/2012 Abstract [facility] Information Services [address] [facility] [place] [phone] Provider, His [place] MD Social History Tobacco [...] 108/60 05/27/2012 2:30 PM EST Sourced from [facility] Conversion Pulse - - Temperature - - Respiratory Rate - - Oxygen Saturation - - Inhaled Oxygen Concentration - - Weight 79.8 kg (176 lb) 05/27/2012 2:30 PM EST Sourced from [facility] Conversion Height 162.6 cm (5' 4) 05/27/2012 2:30 PM EST Sourced from [facility] Body Mass Index 30.21 05/27/2012 2:30 PM EST documented in this encounter Plan of Treatment Not on file documented as of this encounter Visit Diagnoses Not on filedocumented in this encounter Care Teams Tool Maintenance Worker Relationship Specialty Start Date End Date Patti Faustin DO [address] [place] [address] PCP - General 12/24/11 05/31/17 documented as of this encounter
--- OUTSIDE RECORDS SUMMARY | 2024-03-27 15:37 | XMS_ITS | Encounter Summary ---
Author Organization [facility] [place] [address] Care Team Providers Care Acquisitions Assistant Name Role Phone Patti Faustin DO Primary Care Provider [phone] Encounter Details Date Type Department Care Team ([facility] st Contact Info) Description 02/26/2012 [facility] Information Services [address] [place] [phone] Provider, His [place] MD Social History Tobacco [...] 3) 02/26/2012 10:45 AM EDT Sourced from [place] Conversion Body Mass Index 31.71 02/26/2012 10:45 AM EDT documented in this encounter Plan of Treatment Not on file documented as of this encounter Visit Diagnoses Not on filedocumented in this encounter Care Teams Acquisitions Assistant Relationship Specialty Start Date End Date Patti Faustin DO [address] [place] [address] PCP - General 12/24/11 05/31/17 documented as of this encounter
--- OUTSIDE RECORDS SUMMARY | 2024-03-27 15:37 | XMS_ITS | Encounter Summary ---
[place] [address] Care Team Providers Care Bindery Chief Name Role Phone Patti Faustin DO Primary Care Provider [phone] Encounter Details Date Type Department Care Team ([facility] st Contact Info) Description 12/24/2011 11:45 AM EDT Office Visit [facility] [address] [place] [phone] Duke Prescott MD [address] [place], [place] [phone] Social History Tobacco Use Types Packs/Day Years Used Date Smoking Tobacco: Never Assessed Sex and Gender Information Value Date Recorded Sex Assigned at Not on file Gender Identity Not on file Sexual Orientation Not on file documented as of this encounter Plan of Treatment Not on file documented as of this encounter Visit Diagnoses Not on filedocumented in this encounter Care Teams Bindery Chief Relationship Specialty Start Date End Date Patti Faustin DO [address] [place] [address] PCP - General 12/24/11 05/31/17 documented as of this encounter
--- OUTSIDE RECORDS SUMMARY | 2024-03-27 15:37 | XMS_ITS | Encounter Summary ---
Author Organization [facility] [place] [address] Care Team Providers Care Manager Revenue Name Role Phone Patti Faustin DO Primary Care Provider [phone] Encounter Details Date Type Department Care Team (Late st Contact Info) Description 01/07/2012 Orders Only [facility] [place] [address] Duke Prescott MD [address] [place] [address] Social History Tobacco Use Types Packs/Day Years [...] - MR BRAIN W/O AND W/ CONTR ??[id number] DIAGNOSIS: ?CHRONIC HEADACHES BIFRONTAL REASON: ? CHRONIC [...] - MR BRAIN W/O AND W/ CONTR [id number] DIAGNOSIS: CHRONIC HEADACHES BIFRONTAL REASON: CHRONIC HEADACES [...] on filedocumented in this encounter Care Teams Manager Revenue Relationship Specialty Start Date End Date Patti Faustin DO [address] [place] [address] PCP - General 12/24/11 05/31/17 documented as of this encounter
--- OUTSIDE RECORDS SUMMARY | 2024-03-27 15:37 | XMS_ITS | Clinical Summary ---
[place] [address] Care Team Providers Care Geochemical Laboratory Technician Name Role Phone Kim Cooper MD Primary [...] 108/60 05/27/2012 2:30 PM EST Sourced from [facility] Conversion Pulse - - Temperature - - Respiratory Rate - - Oxygen Saturation - - Inhaled Oxygen Concentration - - Weight 79.8 kg (176 lb) 05/27/2012 2:30 PM EST Sourced from [place] Conversion Height 162.6 cm (5' 4) 05/27/2012 2:30 PM EST Sourced from [place] Conversion Body Mass Index 30.21 05/27/2012 2:30 PM EST Plan of Treatment Health Maintenance Due Date Last Done Comments CT Colonography 1964 Colonoscopy 1964 Colorectal Cancer Screening 1964 FIT DNA 1964 FIT 1964 Sigmoidoscopy (10 year) with FIT yearly 1964 Sigmoidoscopy 1964 HIV screen 01/22/1982 Hepatitis C Screening 01/22/1982 Tetanus/Diphtheria/Pertussis Vaccines (1 - Tdap) 01/22 HPV test 01/22/1994 PAP Smear 01/22/1994 Breast Cancer Share Decision Needed 2004 Breast Cancer screening 2004 Zoster vaccine (1 of 2) 01/22/2014 Advance Directive 01/22/2019 Covid-19 Vaccine ( season) 2024 Influenza (Flu) vaccine (1 o f 1 - Influenza standard series) 02/27/2024 Care Teams Geochemical Laboratory Technician Relationship Specialty Start Date End Date Kim Cooper MD [address] [place] [address] PCP - General Family Medicine 06/01/17
--- OUTSIDE RECORDS SUMMARY | 2024-03-27 15:37 | XMS_ITS | Encounter Summary ---
Author Organization [place] [address] Care Team Providers Care Bus Mechanic Name Role Phone Patti Faustin DO Primary Care Provider [phone] Encounter Details Date Type Department Care Team ([facility] st Contact Info) Description 02/09/2012 [facility] Information Services [address] [facility] [place] [phone] Provider, His [place] MD Social History Tobacco [...] on filedocumented in this encounter Care Teams Bus Mechanic Relationship Specialty Start Date End Date Patti Faustin DO [address] [place] [address] PCP - General 12/24/11 05/31/17 documented as of this encounter
--- OUTSIDE RECORDS SUMMARY | 2024-03-27 15:37 | XMS_ITS | Encounter Summary ---
[place] [address] Care Team Providers Care Finance Accounting Internship Name Role Phone Patti Faustin DO Primary Care Provider [phone] Encounter Details Date Type Department Care Team ([facility] st Contact Info) Description 02/09/2012 2:00 PM EDT Office Visit [facility] [address] [place] [phone] Nolan Rodgers MD [address] [place] [address] Social History Tobacco Use Types Packs/Day Years Used Date Smoking Tobacco: Never Assessed Sex and Gender Information Value Date Recorded Sex Assigned at Not on file Gender Identity Not on file Sexual Orientation Not on file documented as of this encounter Plan of Treatment Not on file documented as of this encounter Visit Diagnoses Not on filedocumented in this encounter Care Teams Finance Accounting Internship Relationship Specialty Start Date End Date Patti Faustin DO [address] [place] [address] PCP - General 12/24/11 05/31/17 documented as of this encounter
--- OUTSIDE RECORDS SUMMARY | 2024-03-27 15:37 | XMS_ITS | Encounter Summary ---
[place] [address] Care Team Providers Care Property Master Name Role Phone Patti Faustin DO Primary Care Provider [phone] Encounter Details Date Type Department Care Team ([facility] st Contact Info) Description 01/04/2012 1:45 PM EDT Office Visit [facility] [address] [place] [phone] Duke Prescott MD [address] [place], [place] [phone] Social History Tobacco Use Types Packs/Day Years Used Date Smoking Tobacco: Never Assessed Sex and Gender Information Value Date Recorded Sex Assigned at Not on file Gender Identity Not on file Sexual Orientation Not on file documented as of this encounter Plan of Treatment Not on file documented as of this encounter Visit Diagnoses Not on filedocumented in this encounter Care Teams Property Master Relationship Specialty Start Date End Date Patti Faustin DO [address] [place] [address] PCP - General 12/24/11 05/31/17 documented as of this encounter
--- OUTSIDE RECORDS SUMMARY | 2024-03-27 15:37 | XMS_ITS | Encounter Summary ---
[facility] Organization [facility] [place] [address] Care Team Providers Care Diploma Pharmacy Technician Name Role Phone Kim Cooper MD Primary Care Provider [phone] Reason for Visit * Reason Comments Skin Check * Consultation (Routine) - Specialty Diagnoses / Procedures Referred By Kristel eduardo Referred To Contact Dermatology Procedures Skin Check Kim Cooper MD [address] [place] [address] Alvaro Gil MD [address] [place] [address], [facility] [place] [address] Referral ID Status Reason Start Date Expiration Date V isits Requested Visits Authorized [id number] Consult, Test & Treat PCP Updated and/or Approved 06/01/2017 06/01/2018 6 6 Encounter Details Date Type Department Care Team (Late st Contact Info) Description 06/01/2017 2:00 PM EST Office Visit Dermatology at [address] [phone] Alvaro Gil MD [address] [place] [address], [facility] [place] [address] [employer]; [employer]ent[employer] Social History Tobacco Use Types [...] than she was. She grew up in [place]. She tended to avoid the sun and [...] dyschromia documented in this encounter Care Teams Diploma Pharmacy Technician Relationship Specialty Start Date End Date Kim Cooper MD [address] [place] [id number] PCP - General Family Medicine 06/01/17 documented as of this encounter
--- OUTSIDE RECORDS SUMMARY | 2024-03-27 15:37 | XMS_ITS | Encounter Summary ---
[place] [address] Care Team Providers Care Cardiology Specialist Name Role Phone Patti Faustin DO Primary Care Provider [phone] Encounter Details Date Type Department Care Team ([facility] st Contact Info) Description 05/27/2012 2:30 PM EST Office Visit [facility] [place] [address] [place] [phone] Duke Prescott MD [address] [place], [place] [id number] Social History Tobacco Use Types Packs/Day Years Used Date Smoking Tobacco: Never Assessed Sex and Gender Information Value Date Recorded Sex Assigned at Not on file Gender Identity Not on file Sexual Orientation Not on file documented as of this encounter Plan of Treatment Not on file documented as of this encounter Visit Diagnoses Not on filedocumented in this encounter Care Teams Cardiology Specialist Relationship Specialty Start Date End Date Patti Faustin DO [address] [place] [address] PCP - General 12/24/11 05/31/17 documented as of this encounter
--- OUTSIDE RECORDS SUMMARY | 2024-03-27 15:37 | XMS_ITS | Encounter Summary ---
[place] [address] Care Team Providers Care Hydro Technician Name Role Phone Patti Faustin DO Primary Care Provider [phone] Encounter Details Date Type Department Care Team ([facility] st Contact Info) Description 02/26/2012 10:45 AM EDT Office Visit [facility] [address] [place] [phone] Duke Prescott MD [address] [place], [place] [id number] Social History Tobacco Use Types Packs/Day Years Used Date Smoking Tobacco: Never Assessed Sex and Gender Information Value Date Recorded Sex Assigned at Not on file Gender Identity Not on file Sexual Orientation Not on file documented as of this encounter Plan of Treatment Not on file documented as of this encounter Visit Diagnoses Not on filedocumented in this encounter Care Teams Hydro Technician Relationship Specialty Start Date End Date Patti Faustin DO [address] [place] [address] PCP - General 12/24/11 05/31/17 documented as of this encounter
== END 2024-03-27 15:34 | disposition home or self-care (01) ==
LOC: LBN 15:33
PROVIDERS: PCP Family Medicine; Visit Provider Otolaryngology
DX: L98.9 Disorder of the skin and subcutaneous tissue, unspecified (principal); D22.122 Melanocytic nevi of left lower eyelid, including canthus
CPT/HCPCS: 88305

== ENCOUNTER 2024-09-26 14:08 | Outpatient (REF) | payer OTHER, SELFPAY ==
[2024-09-26 16:43] LABS: ALT 23 U/L (14-59); AST 26 U/L (15-37); Albumin 3.9 g/dL (3.4-5.0); Alkaline Phosphatase 80 U/L (46-116); Anion Gap 8.6 mmol/L (3-11); BUN 17 mg/dL (7-18); Bilirubin, Total 0.2 mg/dL (0.2-1.0); CO2 27.4 mmol/L (21.0-32.0); CREATININE 0.9 mg/dL (0.55-1.02); Calcium 9.5 mg/dL (8.5-10.1); Calculated LDL 118 mg/dL (<100); Chloride 107 mmol/L (98-107); Cholesterol 224 mg/dL (<200); Estimated GFR 73.19 (mL/min/1.73m2); Glucose 115 mg/dL (74-106); HDL Cholesterol 65 mg/dL (>or=50); Potassium 4.2 mmol/L (3.5-5.1); Sodium 143 mmol/L (136-145); TSH (W/Ref FT4) 2.42 uIU/mL (0.36-3.74); Total Protein 7.3 g/dL (6.4-8.2); Triglyceride 205 mg/dL (<150)
[2024-09-26 17:04] LABS: Microalb ug/mg Crea 3.3 ug/mg Cr
[2024-09-28 10:33] LABS: Hepatitis C Ab w Rflx HCV PCR Negative (Negative)
== END 2024-09-26 14:09 | disposition home or self-care (01) ==
LOC: NCHCN 14:08
PROVIDERS: PCP Family Medicine; Visit Provider Family Medicine
DX: E11.9 Type 2 diabetes mellitus without complications (principal); Z11.59 Encounter for screening for other viral diseases; E78.5 Hyperlipidemia, unspecified
CPT/HCPCS: 80053; 80061; 86803; 82043; 82570; 84443

== ENCOUNTER 2024-10-02 03:34 | Outpatient (CLI) | payer SELFPAY ==
[2024-10-03 11:05] LABS: HIV-1/2 Ag & Ab Screen Negative (Negative)
== END 2024-10-02 03:35 | disposition home or self-care (01) ==
PROVIDERS: PCP Family Medicine; Visit Provider Family Medicine
DX: Z11.4 Encounter for screening for human immunodeficiency virus [HIV] (principal)
CPT/HCPCS: 36415; 87389

== ENCOUNTER 2025-02-13 15:11 | Outpatient (CLI) | payer OTHER, SELFPAY ==
--- NOTE | 2025-02-13 | DI.MAMMO_ITS ---
Exam(s) MAMMO SCREENING EXAM: MAMMO SCREENING CLINICAL HISTORY: SCREENING, Z12.31 TECHNIQUE: Mammograms were interpreted according to the usual protocol including computer analysis with CAD system, tomosynthesis and C-view imaging. COMPARISON: 2015 through 2023 FINDINGS: The breasts are composed of heterogeneously dense fibroglandular densities, Breast Density category C. No suspicious masses or suspicious microcalcifications are seen. Stable bilateral benign appearing calcifications. No skin thickening or abnormal axillary lymph nodes are seen. There has been no significant change from prior exams. IMPRESSION: BI-RADS Category 2 - Negative Mammogram with benign findings. Yearly screening mammography is recommended. Breast Density: Category C - The breasts are heterogeneously dense, which may obscure small masses. Breast density Category C or D implies that the patient has dense breast tissue. Dense breast tissue can make it harder to find cancer on a mammogram. Dense breast tissue is also associated with an increased risk of breast cancer. This information about the result of the mammogram report was provided to the patient to raise their awareness. Use this report when you speak with the patient about their risks for breast cancer, which includes their family history. At that time, you may recommend additional screening tests (Ultrasound or MRI) as these tests may add significant information. A negative radiographic report should not delay biopsy if a dominant or clinically suspicious mass is present. Up to ten percent of cancers are not identified on mammography. A negative report may reinforce clinical impression. Adenosis and dense breasts may obscure an underlying neoplasm. False positive reports average 6 to 10%.
== END 2025-02-13 15:31 ==
PROVIDERS: PCP Family Medicine; Visit Provider Family Medicine
DX: Z12.31 Encounter for screening mammogram for malignant neoplasm of breast (principal); R92.333 Mammographic heterogeneous density, bilateral breasts
CPT/HCPCS: 77063; 77067